=== PATIENT | female | born 2000 | race Caucasian/White ===

== ENCOUNTER → 2022-05-10 15:06 | Outpatient (CLI) | payer SELFPAY ==
--- NOTE | 2022-05-10 | DI.US.S_ITS ---
PROCEDURE: US PELVIC COMPLETE INDICATIONS: excessive and frequent menstruation TECHNIQUE: Real-time scanning was performed of the pelvic organs, with image documentation. Additional endovaginal scanning was necessary due to incomplete visualization of the adnexal and endometrial structures by transabdominal scanning. COMPARISON: None. FINDINGS: Uterus: Uterus is anteverted and normal in size at 8.9 x 3.5 x 6.2 cm. There is a bicornuate appearance of the uterus with widely endometrial canals that join proximal to the cervix. The myometrium is mild heterogeneous with vertical shadowing trilaminar appearance of the endometrium measuring up to 12 mm in diameter. There is possible focal area of intermediate echogenicity in the left anterior endometrium measuring 7 x 5 x 9 mm. Ovaries: The right ovary measures 4.5 x 2.4 x 1.5 cm, with a calculated ovarian volume of 8.1 cc. The left ovary measures 6.2 x 4.4 x 4.9 cm, with a calculated ovarian volume of 69.8 cc. The ovaries have a normal sonographic appearance. A large physiologic cyst is seen within the left ovary measuring 5.3 x 3.5 x 4.4 cm with multiple daughter cyst. No adnexal masses are seen. Other: No pathologic free abdominal or pelvic fluid. IMPRESSION: 1. Bicornuate appearance of the uterus. 2. Endometrium is within normal limits in thickness. Questionable vague 9 mm signal abnormality within the left anterior endometrium could represent a possible endometrial polyp or focal hyperplasia versus artifact. 3. Left ovary is enlarged by a 5.3 cm physiologic cyst. We strive to produce accurate, complete, and clear reports of imaging services. To assist us in improving patient care, this report was composed using standard report templates and voice recognition software. Therefore, it may contain abnormal punctuation, insertions and/or omissions. Occasional wrong-word or sound-alike substitutions may occur. Though we review the report and make efforts to correct it, we do recommend that the report be read carefully in proper context to recognize any text inaccuracies. Approved by: Zaire Laughlin M.D. on 05/11/2022 at 8:53
== END ==
PROVIDERS: Referring Provider Internal Medicine; Visit Provider Internal Medicine
DX: N92.0 Excessive and frequent menstruation with regular cycle (principal); N93.8 Other specified abnormal uterine and vaginal bleeding; N83.292 Other ovarian cyst, left side
CPT/HCPCS: 76830; 76856; 93976

== ENCOUNTER → 2022-06-28 14:41 | Outpatient (CLI) | payer OTHER, MEDICAID, SELFPAY ==
[2022-06-28 17:17] LABS: COVID19 -Nasal RAPID Negative (Negative)
== END ==
PROVIDERS: PCP Internal Medicine; Visit Provider Obstetrics & Gynecology
DX: Z20.822 Contact with and (suspected) exposure to COVID-19 (principal); Z01.812 Encounter for preprocedural laboratory examination
CPT/HCPCS: 87635; C9803

== ENCOUNTER 2022-06-29 06:33 | Day surgery (SDC) | payer OTHER, MEDICAID, SELFPAY ==
[2022-06-28 11:52] VITALS: BMI 24.0
[2022-06-29] VITALS (8 sets, daily range): BP systolic 104–130; BP diastolic 73–84; PULSE 55–79; RESP 10–20; TEMP 36.1–36.7; O2SAT 99–100; BMI 24.0
--- NOTE | 2022-06-29 | PATH_ITS ---
[facility] Accession Number: [id number] . 01 Material submitted: . endometrium - ENDOMETRIAL CURETTAGE . 01 Diagnosis: Endometrium, Curettage: Mixed phase endometrium with breakdown. Negative for atypical hyperplasia and malignancy. [facility] 06/30/2022 1537 Local . 01 Electronically signed: . Urszula Mayers MD, Pathologist NPI- [id number] . 01 Gross description: . ENDOMETRIAL CURETTAGE: Received in formalin are minute fragments of mucoid and hemorrhagic material measuring 2.0 x 2.0 x 0.4 cm in aggregate. Submitted in toto in 1 cassette. /[place] 06/30/2022 0102 Local . 01 Pathologist provided ICD-10: N92.0 . 01 CPT . 413230 Specimen Comment: A courtesy copy of this report has been sent to [phone] Performed at: 01 [facility] [address] [place] [address], [place], [place] [id number] MD Robby Dumont MD Phone: [phone]
[2022-06-29] MEDS: LACTATED RINGERS 1,000 ML 42 ML IV (07:11)
--- NOTE | 2022-06-29 08:13 | PM.HP.1 ---
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 Patient History Medical History (Updated 06/02/22 @ 18:31 by Sylvia Kauffman) Heavy menstrual period (~2021) Irregular menstrual cycle (~2021) Family & Social History Family History (Updated 06/02/22 @ 18:32 by Sylvia Kauffman) Grandmother Cancer Grandmother Stroke Social History: household members family Tobacco & Substance use: Smoking Status Never smoker alcohol intake frequency holiday/special occasion Substance Use Type does not use Meds Home Medications and Allergies Allergies Allergy/AdvReac Type Severity Reaction Status Date / Time No Known Drug Allergies Allergy Verified 06/29/22 07:07 Exam Vital Signs (past 8 hours): - 06/29/22 07:08 Temperature 98.1 F Pulse Rate 79 Respiratory Rate 20 Blood Pressure 124/81 Pulse Oximetry 100 Oxygen Delivery Method Room Air Oxygen Delivery Method Room Air Narrative Exam Narrative: HEENT: No thyromegaly, no anterior cervical or supraclavicular lymphadenopathy. Lungs:Clear to auscultation bilaterally, no wheezes. Cardiovascular: Regular rate and rhythm, no murmurs, rubs, or gallops. Abdomen: No scars. No hepatosplenomegaly. No masses palpable. External genitalia: Normal Vagina: Normal Cervix: Normal Bimanual exam: [7 Week size uterus. Mobile.] No adnexal masses or tenderness Extremities: No edema Assessment & Plan Assessment & Plan narrative: Assessment: 21-year-old 0 with heavy vaginal bleeding Bicornuate uterus by ultrasound Possible endometrial polyp Plan: D&C hysteroscopy with possible polypectomy The risks, benefits, and alternatives to the procedure were explained to the patient. The risks including bleeding, infection, and uterine perforation. She understands these risks and agrees to proceed. A full par Q was held and consent form was signed. COVID-19 COVID-19 status: Negative Result date/Date tested (Pos, Neg/Pending): 06/28/22 Time Spent With Patient Time with patient: less than 30 minutes Critical Care time: I spent a total of [] minutes of critical care time on this patient's care today; this time is exclusive of procedural time.
--- NOTE | 2022-06-29 08:15 | PM.PREOP ---
Pre-operative Note COVID-19 COVID-19 status: Negative Result date/Date tested (Pos, Neg/Pending): 06/28/22 Interval Note History & Physical reviewed/Exam performed by Physician: Yes Changes to H&P: No H&P completed within 30 days and has changed as indicated here:: 06/29/22
--- NOTE | 2022-06-29 08:40 | SUR.OPER ---
Lithotomy on padded OR bed, head on pillow, arms secured on padded arm boards at <90 degrees abduction. Legs secured in padded yellow fins stirrups.
--- NOTE | 2022-06-29 09:01 | PM.GYNOP.1 ---
Operative Date/Time/Diagnoses Date of procedure: 06/29/22 Time of procedure: 09:01 Pre-op diagnosis: Menorrhagia Post-op diagnosis: same Procedure & Clinicians Procedure: Procedures Operation Date: 06/29/22 07:45 Actual Procedure Side Surgeon p D&C Hysteroscopy/polypectomy Farzaneh Pressley MD Indications: Menorrhagia Surgeon: Farzaneh Pressley Anesthesia Type: General (LMA) Operative Notes Findings: 7 week size bicornuate uterus Septum comes down to within 2 cm of the internal cervical os Both fallopian tube ostia observed Closure Type: not applicable Specimen(s): endometrial curettings Estimated blood loss (mL): 10 Blood products transfused: none Procedure in detail: After informed consent was obtained, the patient was taken to the operating room where she was placed in the dorsal supine position. After adequate LMA general anesthesia was achieved, she was placed in the dorsal lithotomy position, and prepped and draped in the usual sterile fashion. A time-out was performed. A bivalve speculum was placed into the vagina and the anterior lip of the cervix was grasped with a single-tooth tenaculum. The cervical os was sequentially dilated to the # 8 Hegar dilator. The hysteroscope passed easily into the endometrial cavity. There was a bicornuate uterus with a septum coming within 2 cm of the internal cervical os. Each cornua of the uterus was explored and the fallopian tube ostia were observed on both sides. There were no polyps or fibroids visualized. The hysteroscope was removed from the uterus. Sharp curettage was performed of each uterine horn. The instruments were removed from the uterus. The single-tooth tenaculum was removed from the anterior lip of the cervix. The bivalve speculum was removed from the vagina. Sponge, lap, and instrument counts were correct x2. The patient tolerated the procedure well, and was taken to PACU in stable condition. Complications: none Post-operative Condition: stable Disposition: PACU Plan for aftercare: Home after recovery
== END 2022-06-29 09:40 | disposition home or self-care (01) ==
PROVIDERS: PCP Internal Medicine; Referring Provider Obstetrics & Gynecology; Visit Provider Obstetrics & Gynecology
PROC: 0UDB8ZZ Extraction of Endometrium, Via Natural or Artificial Opening Endoscopic (ICD-10-PCS; CPT 58558; principal; 2022-06-29 07:45)
DX: N92.0 Excessive and frequent menstruation with regular cycle (principal); Q51.3 Bicornate uterus
CPT/HCPCS: 58558; J1100; J1885; J2250; J2405; J2704; J3010